=== PATIENT | male | born 1975 | race African-American/Black ===

== ENCOUNTER 2019-09-23 22:59 | Emergency (ER) | payer MEDICAID ==
[~2019-09-23] VITALS: Ht 175.3 cm; Wt 82.0 kg
[2019-09-23 23:14] VITALS: BP 154/101
[2019-09-24] MEDS ORDERED: IBUPROFEN 600MG TABLET PO ONE (01:45)
[2019-09-24] MEDS ORDERED: AZITHROMYCIN 500 MG TABLET PO ONE (01:45)
[2019-09-24] MEDS ORDERED: CEFTRIAXONE SODIUM 250 MG/VIAL IM ONE (01:45)
[2019-09-24 02:30] LABS: CLARITY URINE CLOUDY (CLEAR); COLOR URINE YELLOW (YELLOW); KETONES URINE NEGATIVE (NEGATIVE); LEUKOCYTE ESTERASE URINE 3+ (NEGATIVE); NITRITE URINE NEGATIVE (NEGATIVE); OCCULT BLOOD URINE TRACE (NEGATIVE); PROTEIN URINE NEGATIVE (NEGATIVE); SPECIFIC GRAVITY URINE 1.028 (1.005-1.030); UROBILINOGEN URINE 0.2 E.U./dL (0.2-1.0)
== END 2019-09-24 02:08 | disposition left against medical advice (07) ==
LOC: ER 22:59
DX: Z20.2 Contact with and (suspected) exposure to infections with a predominantly sexual mode of transmission (principal)
CPT/HCPCS: 81003; 99283; J0696